=== PATIENT | male | born 1995 | race Two or more races ===

== ENCOUNTER 2016-08-31 05:44 | Day surgery (SDC) | payer BC, MEDICARE ==
[2016-08-30 16:15] VITALS: BMI 23.8
[2016-08-31] VITALS (7 sets, daily range): BP systolic 105–119; BP diastolic 54–63; PULSE 52–60; RESP 12–20; Ht 170.2 cm; Wt 68.3 kg
[~2016-08-31] VITALS: Ht 170.2 cm; Wt 68.3 kg
[2016-08-31] MEDS ORDERED: CYCLOPENTOLATE 2% 2 ML OPH OPER SCH (06:27)
[2016-08-31] MEDS ORDERED: LACTATED RINGER'S 1,000 ML IV SCH (06:27)
[2016-08-31] MEDS ORDERED: MOXIFLOXACIN 0.5% 3 ML OPH OPER SCH (06:28)
[2016-08-31] MEDS ORDERED: PHENYLephrine 10% 5 ML OPH OPER SCH (06:28)
[2016-08-31] MEDS ORDERED: DICLOFENAC 0.1% 2.5 ML OPH OPER SCH (06:28)
[2016-08-31] MEDS ORDERED: TROPICAMIDE 1% 2 ML OPH OPER SCH (06:28)
[2016-08-31] MEDS ORDERED: TETRACAINE 0.5% 4 ML OPH OPER SCH (06:29)
[2016-08-31] MEDS ORDERED: LIDOCAINE 3.5% GEL TUBE OPER ONE (06:29)
[2016-08-31] MEDS ORDERED: LIDOCAINE 2%/EPI 30 ML INJ ONE (06:39)
[2016-08-31] MEDS ORDERED: TOBRAMYCIN 0.3% 3.5 GM OPH OINT ONE (06:39)
[2016-08-31] MEDS ORDERED: EPINEPHrine 1 MG INJ ONE (06:39)
[2016-08-31] MEDS ORDERED: CARBACHOL 0.01% 1.5 ML OPH INJ ONE (06:39)
[2016-08-31] MEDS ORDERED: NA HYALURONATE/CHONDROITIN 0.5 ML SYG ONE (06:42)
[2016-08-31] MEDS ORDERED: LIDOCAINE 2%/EPI (MDV) 20ML INJ INJ ONE (06:58)
[2016-08-31] MEDS ORDERED: NA HYALURONATE/CHONDROITIN 0.5 ML SYG RIGHT EYE ONE (06:59)
[2016-08-31] MEDS ORDERED: ETOMIDATE 20 MG INJ ONE (07:00)
[2016-08-31] MEDS ORDERED: TRYPAN BLUE 0.5 ML SYG IO ONE (07:00)
--- NOTE | 2016-08-31 07:12 | HPN ---
Date/Time of Note Date/Time of Note DATE: 08/31/16 TIME: 07:12 Interval H&P Admission Note Pt. seen H&P reviewed: No system changes MARY LI D.O. Aug 31, 2016 07:12
[2016-08-31] MEDS ORDERED: PROPOFOL 20 ML ONE ×2 (07:19→07:24)
[2016-08-31] MEDS ORDERED: ROCURONIUM 50 MG INJ ONE ×3 (07:20→07:26)
[2016-08-31] MEDS ORDERED: LIDOCAINE 2% (SDV) 5 ML INJ ONE (07:20)
[2016-08-31] MEDS ORDERED: NEOSTIGMINE 3 MG/3 ML SYRINGE ONE (07:24)
[2016-08-31] MEDS ORDERED: GLYCOPYRROLATE 0.4 MG INJ ONE (07:24)
[2016-08-31] MEDS ORDERED: MIDAZOLAM 1 MG/ML 2 ML INJ ONE (07:25)
[2016-08-31] MEDS ORDERED: ONDANSETRON 4 MG INJ ONE (07:25)
[2016-08-31] MEDS ORDERED: FENTAnyl 50 MCG/ML VIAL ONE (07:25)
[2016-08-31] MEDS ORDERED: DEXAMETHASONE 4 MG/ML 1 ML INJ ONE (07:25)
[2016-08-31] MEDS ORDERED: CEFAZOLIN 1 GM INJ ONE ×2 (07:25→07:26)
[2016-08-31] MEDS ORDERED: HYALURONATE/CHONDROITIN 1ML OPH INJ IO ONE (07:30)
[2016-08-31] MEDS ORDERED: HYDROmorphONE 2 MG/ML SYG ONE (07:47)
[2016-08-31] MEDS ORDERED: HYDROmorphONE (0.2 MG/ML) 10ML SYG IV PRN ×5 (08:00→09:00)
[2016-08-31] MEDS ORDERED: MIDAZOLAM 1 MG/ML 2 ML INJ IV PRN (08:00)
[2016-08-31] MEDS ORDERED: EPHEDrine SULFATE 50 MG/5 ML SYG IV PRN (08:00)
[2016-08-31] MEDS ORDERED: TRIMETHOBENZAMIDE 100 MG/ML VIAL IM PRN (08:00)
[2016-08-31] MEDS ORDERED: LABETALOL HCL 20MG INJ IV PRN (08:00)
[2016-08-31] MEDS ORDERED: FENTAnyl 50 MCG/ML VIAL IV PRN ×4 (08:00→09:00)
[2016-08-31] MEDS ORDERED: ONDANSETRON 4 MG INJ IV PRN ×2 (08:00→09:00)
[2016-08-31] MEDS ORDERED: hydrALAzine 20 MG INJ IV PRN (08:00)
[2016-08-31] MEDS ORDERED: DIPHENHYDRAMINE 50 MG INJ IV PRN ×2 (08:00→09:00)
[2016-08-31] MEDS ORDERED: MEPERIDINE 25 MG INJ IV PRN ×2 (08:00→09:00)
--- NOTE | 2016-08-31 16:32 | OPR ---
DATE OF OPERATION: PREOPERATIVE DIAGNOSIS: Hypermature cataract, right eye. POSTOPERATIVE DIAGNOSIS: Cataracta complicata, right eye. PLANNED PROCEDURE: Extracapsular cataract extraction via phacoemulsification with intraocular lens implantation, and pars plana vitrectomy, right eye. PROCEDURE PERFORMED: Cataract extraction via phacoemulsification with intraocular lens implantation, and pars plana vitrectomy, right eye. SURGEON: Mary Tesfaye MD ANESTHESIA: General and local. CONSENT: The patient and his family were given different options to treat his condition and the most common complications of cataract surgery. Since the patient does not have vision, just hand motion, they decided o take a risk to have cataract removed. They aware of the rare possibility of bleeding, infection, loss of the lens or fragment of the lens, dislocation or loss of intraocular lens, possibility of retinal detachment, loss of vision, loss of the eye as an organ. The patient and his family agreed to have the procedure done and they aware of rare possibility of additional surgery in case of complications. Consent signed and can be found in the chart. DESCRIPTION OF PROCEDURE: The patient was brought to the operating room in stable condition, placed on the operating table in supine position. The right eye was prepped for cataract surgery in the routine sterile technique. Initially it was done partial peritomy in temporal limbal area and entrance incision was done with keratome. It was followed by injection of lidocaine with epinephrine, preservative-free and follow by injection of Viscoat agent and trypan blue dye, which was washed out with balanced salt solution. Then, capsulorrhexis was started with cystotome and it was very hard and it was just partially opened and milky material was coming out and filling the whole anterior chamber. Before completion of capsulorrhexis, some irrigation and aspiration was done. After that, additional Viscoat was injected and capsulorrhexis was completed with Utrata forceps and [place] scissors. Then, cortex was removed and partial vitrectomy was performed, since it was noticed some opening on the posterior capsular bag. After that, additional DisCoVisc material was injected in the sulcus and Shaq MN60AC 18.5 diopter lens was inserted into the sulcus.The IOL rotated well and Miostat was injected in AC. Then, 10-0 nylon 2 sutures were placed on the entrance wound. TobraDex ointment was instilled in conjunctival sac. Then, the eye was closed and a patch was placed over closed eyelid. The patient was transferred to recovery room in stable condition. Dictated By: MARY ALVARENGA/GARY Conf#: [id number] DID#: [id number] MTDD
== END 2016-08-31 10:29 | disposition home or self-care (01) ==
LOC: SDS 05:44
PROVIDERS: ATTEND Ophthalmology
DX: H25.21 Age-related cataract, morgagnian type, right eye (principal); J45.909 Unspecified asthma, uncomplicated
CPT/HCPCS: 66984; J0171; J0690; J1100; J2250; J2405; J2710; J3010; J7120; V2630; Z7512; Z7610; J1170